=== PATIENT | female | born 1985 | race Caucasian/White ===

== ENCOUNTER 2021-01-22 19:56 | Emergency (ER) | payer MEDICAID ==
[~2021-01-22] VITALS: Ht 157.5 cm; Wt 53.0 kg
[2021-01-22 21:46] LABS: BASOPHILS % 0.3 % (0.0-2.0); EOSINOPHILS % 0.6 % (0.0-5.0); HEMATOCRIT. 34.8 % (36.0-48.0); HEMOGLOBIN. 11.3 g/dL (12.0-16.0); LYMPHOCYTES % 12.7 % (20.0-50.0); MEAN CORPUSCULAR VOLUME 73.7 fL (81.0-99.0); MEAN PLATELET VOLUME 9.3 fl (7.4-10.4); MONOCYTES % 5.5 % (2.0-8.0); NEUTROPHILS % 80.9 % (40.0-76.0); PLATELET 236 x1000/uL (130-400); RED BLOOD CELL COUNT 4.72 mill/uL (4.2-5.4); RED CELL DISTRIBUTION WIDTH 18.3 % (11.6-14.6)
[2021-01-22 21:53] LABS: CHLORIDE 108 mEq/L (98-107)
[2021-01-22 22:31] LABS: B-HCG QUANTITATIVE 7557 mIU/mL (<3)
[2021-01-22] MEDS ORDERED: ACETAMINOPHEN 500MG TABLET PO NR (23:00)
[2021-01-23] MEDS ORDERED: ACET650T37 MT (00:30)
[2021-01-23 00:40] VITALS: BP 100/55
== END 2021-01-23 01:16 | disposition home or self-care (01) ==
LOC: ER 19:56
DX: O20.0 Threatened abortion (principal); Z3A.08 8 weeks gestation of pregnancy
CPT/HCPCS: 36415; 76801; 80053; 81025; 84702; 85025; 86850; 86900; 99284